=== PATIENT | female | born 2000 | race Caucasian/White ===

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

== ENCOUNTER 2023-11-12 18:17 | Emergency (ER) | payer MEDICAID, OTHER ==
[~2023-11-12] VITALS: Ht 165.1 cm; Wt 113.0 kg
[2023-11-12 18:24] VITALS: BP 156/64; PULSE 100; RESP 15; TEMP 98.9; O2SAT 100
[2023-11-12 19:29] LABS: BASOPHILS % 0.3 % (0.0-2.0); DIFFERENTIAL COMMENT 0; EOSINOPHILS % 1.3 % (0.0-5.0); HEMOGLOBIN. 12.2 g/dL (12.0-16.0); LYMPHOCYTES % 26.7 % (20.0-50.0); MEAN CORPUSCULAR HEMOGLOBIN 25.5 pg (28.0-32.0); MEAN CORPUSCULAR HGB CONC 32.9 g/dL (31.0-37.0); MEAN CORPUSCULAR VOLUME 77.5 fL (81.0-99.0); MEAN PLATELET VOLUME 9.1 fl (7.4-10.4); MONOCYTES % 4.8 % (2.0-8.0); NEUTROPHILS % 66.9 % (40.0-76.0); PLATELET 255 x1000/uL (130-400); RED BLOOD CELL COUNT 4.77 mill/uL (4.2-5.4); RED CELL DISTRIBUTION WIDTH 14.8 % (11.6-14.6); WHITE BLOOD COUNT 12.7 x1000/uL (4.5-11.0)
[2023-11-12 19:34] LABS: CHLORIDE 104 mEq/L (98-107); POTASSIUM 3.3 mEq/L (3.5-5.1); SODIUM 137 mEq/L (136-145)
[2023-11-12 19:35] LABS: CARBON DIOXIDE 24 mEq/L (21-32)
[2023-11-12 19:40] LABS: CREATININE 0.7 mg/dL (0.6-1.0); GLUCOSE 80 mg/dL (70-105); UREA NITROGEN BLOOD 9 mg/dL (9-23)
[2023-11-12 19:42] LABS: ALANINE AMINOTRANSFERASE 32 IU/L (10-49); ALBUMIN 4.3 g/dL (3.2-4.8); ASPARTATE AMINOTRANSFERASE 20 IU/L (<34); BILIRUBIN TOTAL 0.3 mg/dL (0.1-1.0); PROTEIN TOTAL 6.8 g/dL (6.0-8.3)
[2023-11-12 19:44] LABS: BILIRUBIN DIRECT < 0.1 mg/dL (<=3.0)
[2023-11-12 20:17] LABS: B-HCG QUANTITATIVE 30036 mIU/mL (<3)
[2023-11-12] MEDS: POTASSIUM CHLORIDE 20MEQ/PACKET PO ONE (20:36)
[2023-11-12 22:17] LABS: CLARITY URINE CLEAR (CLEAR); COLOR URINE YELLOW (YELLOW); GLUCOSE URINE NEGATIVE (NEGATIVE); KETONES URINE 1+ (NEGATIVE); LEUKOCYTE ESTERASE URINE 1+ (NEGATIVE); NITRITE URINE NEGATIVE (NEGATIVE); OCCULT BLOOD URINE NEGATIVE (NEGATIVE); PROTEIN URINE NEGATIVE (NEGATIVE); SPECIFIC GRAVITY URINE 1.024 (1.005-1.030); UROBILINOGEN URINE 0.2 E.U./dL (0.2-1.0)
[2023-11-12 22:37] LABS: BACTERIA URINE 2+; SQUAMOUS EPITHELIAL CELL URINE 1+ /lpf (RARE/1+)
[2023-11-12 22:38] LABS: RBC URINE 0-2 /hpf (0-2)
[2023-11-12 22:39] LABS: CALCIUM OXALATE CRYSTALS URINE 1+ /lpf
== END 2023-11-13 01:13 | disposition home or self-care (01) ==
LOC: ER 18:17
DX: O26.892 Other specified pregnancy related conditions, second trimester (principal); O44.02 Complete placenta previa NOS or without hemorrhage, second trimester; E11.9 Type 2 diabetes mellitus without complications; Z3A.15 15 weeks gestation of pregnancy
CPT/HCPCS: 80076; 80048; 81003; 84702; 85025; 86850; 86900; 86901; 36415; 76801; 76817; 99284; Z7610